=== PATIENT | female | born 1995 | race Caucasian/White ===

== ENCOUNTER 2018-03-12 13:50 | Emergency (ER) | payer OTHER ==
[~2018-03-12] VITALS: Ht 170.2 cm; Wt 86.2 kg
== END 2018-03-12 17:41 | disposition home or self-care (01) ==
LOC: ER 13:50
DX: S30.0XXA Contusion of lower back and pelvis, initial encounter (principal); S40.021A Contusion of right upper arm, initial encounter; S80.02XA Contusion of left knee, initial encounter; V49.9XXA Car occupant (driver) (passenger) injured in unspecified traffic accident, initial encounter; Y93.89 Activity, other specified; Y92.488 Other paved roadways as the place of occurrence of the external cause; Y99.8 Other external cause status

== ENCOUNTER 2021-04-10 13:14 | Inpatient (IN) | payer OTHER ==
[~2021-04-10] VITALS: Ht 170.2 cm; Wt 114.8 kg
== END 2021-04-29 14:24 | disposition home or self-care (01) | DRG 807 ==
LOC: OB/GYN 04-27 10:30 → LDR 04-27 10:30 → OB/GYN 04-27 21:06
PROVIDERS: ADMIT Specialist; ATTEND Specialist
PROC: 10E0XZZ Delivery of Products of Conception, External Approach (ICD-10-PCS; principal; 2021-04-27)
PROC: 0W8NXZZ Division of Female Perineum, External Approach (ICD-10-PCS; 2021-04-27)
PROC: 4A1HXFZ Monitoring of Products of Conception, Cardiac Rhythm, External Approach (ICD-10-PCS; 2021-04-27)
DX: O80 Encounter for full-term uncomplicated delivery (principal); Z37.0 Single live birth; Z3A.39 39 weeks gestation of pregnancy; Z20.822 Contact with and (suspected) exposure to COVID-19